=== PATIENT | female | born 1985 | race African-American/Black ===

== ENCOUNTER 2018-11-06 00:20 | Observation (INO) ==
[2018-11-06] MEDS ORDERED: methylPREDNISolone SOD SUC 125 MG/2 ML VIAL IV STA (01:13)
[2018-11-06] MEDS ORDERED: ONDANSETRON 4 MG/2 ML VIAL IV STA (01:13)
[2018-11-06] MEDS ORDERED: ALBUTEROL NEB SOLN 5 MG/ML 20 ML/BOTTLE RESP TX SCH (01:30)
[2018-11-06 01:52] LABS: Basophils % 0.6 % (0.0-0.8); Eosinophils # 0.7 10*3/uL (0.0-0.87); Hematocrit 37.8 VOL% (35.7-47.0); Hemoglobin 12.4 GM/DL (12.0-16.0); Immature Granulocytes % 0.7 %; Immature Granulocytes Absolute 0.05 #; Lymphocytes # 1.6 10*3/uL (1.4-4.0); Lymphocytes % 23.2 % (21.3-54.2); Mean Corpuscular HGB Conc 32.8 GM/DL (32-36); Mean Corpuscular Volume 85.9 FL (87-102); Mean Platelet Volume 10.2 FL (9.6-12.0); Monocytes % 6.9 % (1.7-12.7); Neutrophils % 58.6 % (38.7-73.9); Platelet Count 221 T/CUMM (130-400); Red Cell Distribution Width 13.2 % (9.3-17.3); White Blood Count 6.7 T/CUMM (4-12)
[2018-11-06 02:07] LABS: INR 0.9; PT Patient Result 9.9 SECS
[2018-11-06 02:13] LABS: Alanine Aminotransferase 37 U/L (13-56); Albumin 3.8 G/DL (3.4-5.0); Alkaline Phosphatase 59 U/L (45-117); Aspartate Amino Transferase 30 U/L (0-37); Blood Urea Nitrogen 8 MG/DL (7-18); CKMB % 2.9 %; Calcium 9.1 MG/DL (8.5-10.1); Glucose 95 MG/DL (74-106); Osmolality,Calculated 276.4 MOS/KG (273-304); Total Protein 8.1 G/DL (6.4-8.3); Troponin I < 0.015 NG/ML (0.00-0.045)
[2018-11-06] MEDS ORDERED: ACETAMINOPHEN 325 MG TABLET PO PRN (03:12)
[2018-11-06] MEDS ORDERED: ONDANSETRON 4 MG/2 ML VIAL IV PRN (03:12)
[2018-11-06] MEDS ORDERED: guaiFENesin/DM ER 600-30 MG TABLET PO PRN (03:12)
[2018-11-06 04:32] LABS: Apearance,Urine CLEAR (Clear); Bacteria,Urine Occasional /HPF (Few); Bilirubin,Urine Negative (Negative); Blood, Urine Negative (Negative); Glucose,Urine (UA) Negative (Negative); Ketones,Urine Negative (Negative); Mucus,Urine Occasional /LPF (Occasional); Nitrite,Urine Negative (Negative); Protein,Urine Negative; RBC,Urine 2 /HPF (0-4); Squamous Epithelial Cell,Urine Occasional /HPF (0-10); Urine Color Yellow (Yellow); Urine Specific Gravity 1.016 (1.001-1.035); Urine Urobilinogen < 2.0 EU/DL (0.2-1.0); WBC,Urine 1 /HPF (0-6)
[2018-11-06 04:55] LABS: Barbiturates Screen,Urine Negative (Negative); Benzodiazepines Screen,Urine Negative (Negative); Cannabinoid Screen,Urine Negative (Negative); Opiate Screen,Urine Positive (Negative); Phencyclidine Screen,Urine Negative (Negative)
[2018-11-06] MEDS: SODIUM CHLORIDE 0.9% 1,000 ML IV SCH ×2 (06:54→20:17)
[2018-11-06 07:16] LABS: Basophils % 0.4 % (0.0-0.8); Eosinophils # 0.3 10*3/uL (0.0-0.87); Eosinophils % 4.1 % (0.00-10.9); Hemoglobin 12.2 GM/DL (12.0-16.0); Immature Granulocytes Absolute 0.07 #; Lymphocytes # 0.6 10*3/uL (1.4-4.0); Lymphocytes % 9.1 % (21.3-54.2); Mean Corpuscular HGB Conc 33.9 GM/DL (32-36); Mean Corpuscular Volume 84.3 FL (87-102); Mean Platelet Volume 10.8 FL (9.6-12.0); Monocytes % 2.5 % (1.7-12.7); Neutrophils % 82.9 % (38.7-73.9); Platelet Count 222 T/CUMM (130-400); Red Blood Count 4.27 MC/CUMM (3.8-5.5); Red Cell Distribution Width 13.3 % (9.3-17.3); White Blood Count 6.9 T/CUMM (4-12)
[2018-11-06 07:40] LABS: Calcium 9.3 MG/DL (8.5-10.1); Osmolality,Calculated 275.5 MOS/KG (273-304)
[2018-11-06] MEDS: ALBUTEROL/IPRATROPIUM 3 ML NEB RESP TX SCH ×5 (07:57→23:32)
[2018-11-06] MEDS: AZITHROMYCIN 250 MG TABLET PO SCH (08:52)
[2018-11-06] MEDS: ENOXAPARIN 40 MG/0.4 ML SYRINGE SUBCUT SCH (08:52)
[2018-11-06] MEDS: methylPREDNISolone SOD SUC 40 MG/1 ML VIAL IV SCH ×2 (09:15→17:16)
[2018-11-07] MEDS: methylPREDNISolone SOD SUC 40 MG/1 ML VIAL IV SCH ×2 (01:59→09:08)
[2018-11-07] MEDS: ALBUTEROL/IPRATROPIUM 3 ML NEB RESP TX SCH ×2 (03:27→07:48)
[2018-11-07] MEDS: ENOXAPARIN 40 MG/0.4 ML SYRINGE SUBCUT SCH (09:08)
[2018-11-07] MEDS: AZITHROMYCIN 250 MG TABLET PO SCH (09:08)
[2018-11-07 10:40] VITALS: BP 121/65
== END 2018-11-07 10:24 | disposition home or self-care (01) ==
LOC: EDBD → EDUNIT# → N.ED 00:20 → INTOOBSV 03:12 → SUATTDRO 03:12 → N.EDINP 03:12 → N.5E 05:32
PROVIDERS: ADMIT Internal Medicine; ATTEND Family Medicine

== ENCOUNTER 2019-06-14 15:38 | Observation (INO) ==
[2019-06-14] MEDS ORDERED: ALBUTEROL 2.5 MG/3 ML NEB RESP TX STA (16:16)
[2019-06-14] MEDS ORDERED: methylPREDNISolone SOD SUC 40 MG/1 ML VIAL IV STA (16:16)
[2019-06-14 16:54] LABS: Basophils # 0.1 10*3/uL (0.0-0.2); Eosinophils # 0.6 10*3/uL (0.0-0.87); Eosinophils % 9.9 % (0.00-10.9); Hemoglobin 13.2 GM/DL (12.0-16.0); Immature Granulocytes Absolute 0.06 #; Lymphocytes # 1.8 10*3/uL (1.4-4.0); Lymphocytes % 30.4 % (21.3-54.2); Mean Corpuscular Volume 87.5 FL (87-102); Mean Platelet Volume 10.4 FL (9.6-12.0); Monocytes % 8.4 % (1.7-12.7); Neutrophils % 49.3 % (38.7-73.9); Platelet Count 224 T/CUMM (130-400); Red Blood Count 4.57 MC/CUMM (3.8-5.5); Red Cell Distribution Width 12.7 % (9.3-17.3)
[2019-06-14] MEDS ORDERED: LEVOFLOXACIN INJ 500 MG in PREMIX 1 EACH IV STA (17:12)
[2019-06-14] MEDS ORDERED: LEVOFLOXACIN INJ 100 ML IV ONE (17:15)
[2019-06-14 17:21] LABS: Calcium 9.2 MG/DL (8.5-10.1)
[2019-06-14] MEDS ORDERED: ONDANSETRON 4 MG/2 ML VIAL IV PRN (18:19)
[2019-06-14] MEDS ORDERED: guaiFENesin/DM ER 600-30 MG TABLET PO PRN (18:19)
[2019-06-14] MEDS ORDERED: ACETAMINOPHEN 325 MG TABLET PO PRN (18:19)
[2019-06-14] MEDS ORDERED: cefTRIAXone 1,000 MG in SYRINGE 1 EACH IV SCH (18:30)
[2019-06-14] MEDS: ALBUTEROL/IPRATROPIUM 3 ML NEB RESP TX SCH (20:42)
[2019-06-14] MEDS ORDERED: AZITHROMYCIN INJ 500 MG in SODIUM CHLORIDE 0.9% 250 ML IV SCH (21:00)
[2019-06-15] MEDS: ALBUTEROL/IPRATROPIUM 3 ML NEB RESP TX SCH ×2 (00:12→07:15)
[2019-06-15] MEDS ORDERED: methylPREDNISolone SOD SUC 125 MG/2 ML VIAL IV SCH (05:00)
[2019-06-15 05:57] LABS: Basophils % 0.2 % (0.0-0.8); Eosinophils % 0.2 % (0.00-10.9); Hematocrit 37.6 VOL% (35.7-47.0); Hemoglobin 12.3 GM/DL (12.0-16.0); Immature Granulocytes % 0.7 %; Immature Granulocytes Absolute 0.07 #; Lymphocytes # 0.8 10*3/uL (1.4-4.0); Lymphocytes % 7.8 % (21.3-54.2); Mean Corpuscular HGB Conc 32.7 GM/DL (32-36); Mean Corpuscular Volume 87.6 FL (87-102); Mean Platelet Volume 10.5 FL (9.6-12.0); Monocytes % 3.5 % (1.7-12.7); Neutrophils % 87.6 % (38.7-73.9); Platelet Count 235 T/CUMM (130-400); Red Blood Count 4.29 MC/CUMM (3.8-5.5); Red Cell Distribution Width 12.9 % (9.3-17.3); White Blood Count 9.6 T/CUMM (4-12)
[2019-06-15 06:15] LABS: Calcium 8.9 MG/DL (8.5-10.1); Osmolality,Calculated 274.5 MOS/KG (273-304)
[2019-06-15 07:48] VITALS: BP 98/43
[2019-06-15] MEDS ORDERED: MONTELUKAST 10 MG TABLET PO SCH (09:00)
[2019-06-15] MEDS ORDERED: FLUTICASONE/SALMETEROL 500-50 DISKUS 14 DOSE INH SCH (09:00)
[2019-06-15] MEDS: PANTOPRAZOLE 40 MG TABLET PO SCH ×2 (09:15→09:20)
[2019-06-16] MEDS ORDERED: AZITHROMYCIN 250 MG TABLET PO SCH (09:00)
== END 2019-06-15 10:56 | disposition home or self-care (01) ==
LOC: N.ED 15:38 → N.EDINP 15:38 → N.2E 21:04
PROVIDERS: ADMIT Internal Medicine; ATTEND Internal Medicine

== ENCOUNTER 2019-06-29 19:36 | Observation (INO) ==
[2019-06-29] MEDS ORDERED: methylPREDNISolone SOD SUC 125 MG/2 ML VIAL IV STA (19:55)
[2019-06-29] MEDS ORDERED: ALBUTEROL/IPRATROPIUM 3 ML NEB RESP TX STA (19:55)
[2019-06-29 20:16] LABS: Basophils # 0.1 10*3/uL (0.0-0.2); Basophils % 0.8 % (0.0-0.8); Eosinophils # 1.3 10*3/uL (0.0-0.87); Hematocrit 44.5 VOL% (35.7-47.0); Hemoglobin 14.6 GM/DL (12.0-16.0); Immature Granulocytes % 1.1 %; Immature Granulocytes Absolute 0.09 #; Lymphocytes # 1.8 10*3/uL (1.4-4.0); Lymphocytes % 22.1 % (21.3-54.2); Mean Corpuscular HGB Conc 32.8 GM/DL (32-36); Mean Corpuscular Volume 87.6 FL (87-102); Mean Platelet Volume 10.3 FL (9.6-12.0); Monocytes % 3.8 % (1.7-12.7); Neutrophils % 56.2 % (38.7-73.9); Platelet Count 268 T/CUMM (130-400); Red Blood Count 5.08 MC/CUMM (3.8-5.5); Red Cell Distribution Width 12.7 % (9.3-17.3)
[2019-06-29 20:39] LABS: Eosinophils 20 % (0-10); Lymphocytes 23 % (20-55); Platelet Estimate Adequate; Segmented Neutrophils 52 % (50-85); Total Cells Counted 100
[2019-06-29 20:42] LABS: Albumin 4.3 G/DL (3.4-5.0); Bilirubin,Total 0.6 MG/DL (0.2-1.0); Calcium 9.8 MG/DL (8.5-10.1); Osmolality,Calculated 271.7 MOS/KG (273-304); Total Protein 8.8 G/DL (6.4-8.3)
[2019-06-29] MEDS: ALBUTEROL 2.5 MG/3 ML NEB RESP TX SCH ×2 (21:33)
[2019-06-29] MEDS ORDERED: ALUMINUM/MAGNES/SIMETH MAX STR 30 ML UDCUP PO PRN (22:31)
[2019-06-29] MEDS ORDERED: ONDANSETRON 4 MG/2 ML VIAL IV PRN (22:31)
[2019-06-29] MEDS ORDERED: GLUCAGON 1 MG VIAL IM PRN (22:31)
[2019-06-29] MEDS ORDERED: DOCUSATE SODIUM 100 MG CAPSULE PO PRN (22:31)
[2019-06-29] MEDS ORDERED: DEXTROSE 50% 25 GM/50 ML VIAL IV PRN (22:31)
[2019-06-29] MEDS ORDERED: ACETAMINOPHEN 325 MG TABLET PO PRN (22:31)
[2019-06-29] MEDS ORDERED: ZALEPLON 5 MG CAPSULE PO PRN (22:31)
[2019-06-29] MEDS ORDERED: ALBUTEROL 2.5 MG/3 ML NEB RESP TX SCH (23:00)
[2019-06-29] MEDS ORDERED: ALBUTEROL 2.5 MG/3 ML NEB RESP TX PRN (23:12)
[2019-06-30] MEDS: MONTELUKAST 10 MG TABLET PO SCH ×2 (01:22→20:39)
[2019-06-30] MEDS: methylPREDNISolone SOD SUC 125 MG/2 ML VIAL IV SCH ×4 (03:25→20:39)
[2019-06-30 06:54] LABS: Basophils % 0.2 % (0.0-0.8); Eosinophils % 0.4 % (0.00-10.9); Hemoglobin 14.1 GM/DL (12.0-16.0); Immature Granulocytes % 0.8 %; Immature Granulocytes Absolute 0.08 #; Lymphocytes # 0.7 10*3/uL (1.4-4.0); Lymphocytes % 7.7 % (21.3-54.2); Mean Corpuscular HGB Conc 32.8 GM/DL (32-36); Mean Corpuscular Volume 87.4 FL (87-102); Monocytes % 0.8 % (1.7-12.7); Neutrophils % 90.1 % (38.7-73.9); Platelet Count 289 T/CUMM (130-400); Red Blood Count 4.92 MC/CUMM (3.8-5.5); Red Cell Distribution Width 12.7 % (9.3-17.3); White Blood Count 9.6 T/CUMM (4-12)
[2019-06-30 07:25] LABS: Calcium 9.5 MG/DL (8.5-10.1); Osmolality,Calculated 274.8 MOS/KG (273-304)
[2019-06-30] MEDS: ALBUTEROL/IPRATROPIUM 3 ML NEB RESP TX SCH ×3 (07:29→20:02)
[2019-06-30] MEDS: ENOXAPARIN 40 MG/0.4 ML SYRINGE SUBCUT SCH (09:28)
[2019-06-30] MEDS: PANTOPRAZOLE 40 MG TABLET PO SCH (09:29)
[2019-06-30] MEDS: FLUTICASONE/SALMETEROL 500-50 DISKUS 14 DOSE INH SCH ×2 (14:27→20:40)
[2019-07-01] MEDS: methylPREDNISolone SOD SUC 125 MG/2 ML VIAL IV SCH ×2 (04:56→09:15)
[2019-07-01] MEDS: ALBUTEROL/IPRATROPIUM 3 ML NEB RESP TX SCH (07:25)
[2019-07-01] MEDS: FLUTICASONE/SALMETEROL 500-50 DISKUS 14 DOSE INH SCH (09:14)
[2019-07-01] MEDS: ENOXAPARIN 40 MG/0.4 ML SYRINGE SUBCUT SCH (09:15)
[2019-07-01] MEDS: PANTOPRAZOLE 40 MG TABLET PO SCH (09:15)
[2019-07-01 12:27] VITALS: BP 117/68
== END 2019-07-01 12:43 | disposition home or self-care (01) ==
LOC: N.EDINP 19:36 → N.ED 19:36 → SUATTDRO 22:31 → N.5E 23:05
PROVIDERS: ADMIT Internal Medicine; ATTEND Internal Medicine

== ENCOUNTER 2021-01-11 05:37 | Inpatient (IN) ==
[~2021-01-11 05:37] MED LIST: ACETAMINOPHEN 500 MG TABLET PO ONE; DIAZEPAM 5 MG TABLET PO ONE; FAMOTIDINE 20 MG TABLET PO ONE; GABAPENTIN 400 MG CAPSULE PO ONE; LACTATED RINGERS 1,000 ML IV SCH
[2021-01-11] MEDS ORDERED: CLINDAMYCIN INJ 900 MG/50 ML PREMIX IV ONE (06:00)
[2021-01-11] MEDS ORDERED: DIAZEPAM 5 MG TABLET ONE (06:33)
[2021-01-11] MEDS ORDERED: GABAPENTIN 400 MG CAPSULE ONE (06:34)
[2021-01-11] MEDS ORDERED: ACETAMINOPHEN 500 MG TABLET ONE (06:34)
[2021-01-11] MEDS ORDERED: FAMOTIDINE 20 MG TABLET ONE (06:34)
[2021-01-11] MEDS ORDERED: ONDANSETRON 4 MG/2 ML VIAL ONE (06:59)
[2021-01-11] MEDS ORDERED: LIDOCAINE 2% 5 ML VIAL ONE (06:59)
[2021-01-11] MEDS ORDERED: MIDAZOLAM 2 MG/2 ML VIAL ONE (06:59)
[2021-01-11] MEDS ORDERED: propofoL 200 MG/20 ML VIAL IV ONE (06:59)
[2021-01-11] MEDS ORDERED: fentaNYL 100 MCG/2 ML VIAL ONE ×3 (06:59→09:23)
[2021-01-11] MEDS ORDERED: ROCURONIUM 50 MG/5 ML VIAL IV ONE (06:59)
[2021-01-11] MEDS ORDERED: DEXAMETHASONE 4 MG/1 ML VIAL ONE (06:59)
[2021-01-11] MEDS: LACTATED RINGERS 1,000 ML IV SCH (07:00)
[2021-01-11] MEDS ORDERED: METOPROLOL TARTRATE 5 MG/5 ML VIAL IV ONE (08:44)
[2021-01-11] MEDS ORDERED: GLYCOPYRROLATE 0.4 MG/2 ML VIAL ONE (10:17)
[2021-01-11] MEDS ORDERED: SEVOFLURANE 1 UNIT/15 MINUTE INH ONE (10:17)
[2021-01-11] MEDS ORDERED: TISSUE ADHESIVE 1 EACH APPLICATOR TOP ONE (10:19)
[2021-01-11] MEDS ORDERED: LACTATED RINGERS 1,000 ML IV ONE (10:29)
[2021-01-11] MEDS ORDERED: ONDANSETRON 4 MG/2 ML VIAL IV PRN ×2 (10:32→11:02)
[2021-01-11] MEDS ORDERED: PHENYLEPHRINE DRIP 20 MG/250 ML PREMIX IV ONE (10:54)
[2021-01-11] MEDS: HYDROmorphone 2 MG/1 ML VIAL IV PRN ×5 (11:09→22:05)
[2021-01-11] MEDS: DEXTROSE 5% LACTATED RINGERS 1,000 ML IV SCH ×2 (15:00→18:27)
[2021-01-12] MEDS: HYDROmorphone 2 MG/1 ML VIAL IV PRN ×8 (01:45→23:39)
[2021-01-12] MEDS: DEXTROSE 5% LACTATED RINGERS 1,000 ML IV SCH ×3 (02:18→15:45)
[2021-01-12 05:05] LABS: Basophils % 0.2 % (0.0-0.8); Eosinophils # 0.3 10*3/uL (0.0-0.87); Eosinophils % 4.5 % (0.00-10.9); Hematocrit 35.6 VOL% (35.7-47.0); Hemoglobin 11.6 GM/DL (12.0-16.0); Immature Granulocytes % 0.6 %; Immature Granulocytes Absolute 0.04 #; Lymphocytes # 0.8 10*3/uL (1.4-4.0); Lymphocytes % 11.9 % (21.3-54.2); Mean Corpuscular HGB Conc 32.6 GM/DL (32-36); Mean Corpuscular Volume 86.8 FL (87-102); Mean Platelet Volume 10.6 FL (9.6-12.0); Monocytes % 6.2 % (1.7-12.7); Neutrophils % 76.6 % (38.7-73.9); Platelet Count 219 T/CUMM (130-400); Red Cell Distribution Width 13.4 % (9.3-17.3); White Blood Count 6.5 T/CUMM (4-12)
[2021-01-12 05:29] LABS: Calcium 8.7 MG/DL (8.5-10.1); Osmolality,Calculated 282.1 MOS/KG (273-304); Potassium 3.6 MMOL/L (3.5-5.1)
[2021-01-12] MEDS: PANTOPRAZOLE 40 MG VIAL IV SCH (08:59)
[2021-01-12] MEDS: LACTATED RINGERS 1,000 ML IV SCH (10:29)
[2021-01-13] MEDS: DEXTROSE 5% LACTATED RINGERS 1,000 ML IV SCH ×3 (00:35→17:26)
[2021-01-13] MEDS: HYDROmorphone 2 MG/1 ML VIAL IV PRN ×3 (03:13→11:21)
[2021-01-13] MEDS: LACTATED RINGERS 1,000 ML IV SCH (05:14)
[2021-01-13] MEDS: PANTOPRAZOLE 40 MG VIAL IV SCH (08:31)
[2021-01-13] MEDS ORDERED: CETIRIZINE 10 MG TABLET PO PRN (09:46)
[2021-01-13] MEDS ORDERED: NON-FORMULARY MEDICATION (Tiotropium-Olodaterol [Stiolto Respimat] 2.5-2.5 mcg/actuation M INH PRN (09:46)
[2021-01-13] MEDS ORDERED: diphenhydrAMINE 25 MG/10 ML UDCUP PO PRN (09:46)
[2021-01-13] MEDS ORDERED: BENZONATATE 100 MG CAPSULE PO PRN (09:46)
[2021-01-13] MEDS ORDERED: CYCLOBENZAPRINE 10 MG TABLET PO PRN (09:46)
[2021-01-13] MEDS ORDERED: ALBUTEROL 2.5 MG/3 ML NEB RESP TX PRN (09:46)
[2021-01-13] MEDS: HYDROmorphone 2 MG/1 ML VIAL IM PRN ×2 (15:25→23:13)
[2021-01-13] MEDS: HYDROcod/ACETAMIN 7.5-325 MG/15 ML UDCUP PO PRN (18:18)
[2021-01-13] MEDS: TOPIRAMATE 25 MG TABLET PO SCH (21:24)
[2021-01-13] MEDS: DOCUSATE SODIUM 100 MG CAPSULE PO SCH (21:24)
[2021-01-13] MEDS: MONTELUKAST 10 MG TABLET PO SCH (21:24)
[2021-01-13] MEDS: BECLOMETHASONE 80 MCG/PUFF INHALER 8.7 GM INH SCH (21:24)
[2021-01-14] MEDS: DEXTROSE 5% LACTATED RINGERS 1,000 ML IV SCH ×3 (01:53→16:08)
[2021-01-14] MEDS: HYDROmorphone 2 MG/1 ML VIAL IM PRN ×2 (03:37→20:58)
[2021-01-14 04:55] LABS: Eosinophils # 0.3 10*3/uL (0.0-0.87); Eosinophils % 6.4 % (0.00-10.9); Hematocrit 34.4 VOL% (35.7-47.0); Hemoglobin 11.2 GM/DL (12.0-16.0); Immature Granulocytes % 1.5 %; Immature Granulocytes Absolute 0.06 #; Lymphocytes # 1.1 10*3/uL (1.4-4.0); Lymphocytes % 28.1 % (21.3-54.2); Mean Corpuscular HGB Conc 32.6 GM/DL (32-36); Mean Corpuscular Volume 87.8 FL (87-102); Mean Platelet Volume 10.5 FL (9.6-12.0); Monocytes % 9.4 % (1.7-12.7); Neutrophils % 54.6 % (38.7-73.9); Platelet Count 199 T/CUMM (130-400); Red Blood Count 3.92 MC/CUMM (3.8-5.5); White Blood Count 4.1 T/CUMM (4-12)
[2021-01-14] MEDS: LACTATED RINGERS 1,000 ML IV SCH (05:08)
[2021-01-14 05:14] LABS: Calcium 9.3 MG/DL (8.5-10.1); Osmolality,Calculated 275.4 MOS/KG (273-304); Potassium 3.4 MMOL/L (3.5-5.1)
[2021-01-14] MEDS: PANTOPRAZOLE 40 MG VIAL IV SCH (08:40)
[2021-01-14] MEDS: HYDROcod/ACETAMIN 7.5-325 MG/15 ML UDCUP PO PRN ×2 (08:47→15:29)
[2021-01-14] MEDS: BECLOMETHASONE 80 MCG/PUFF INHALER 8.7 GM INH SCH ×2 (08:48→20:43)
[2021-01-14] MEDS: DOCUSATE SODIUM 100 MG CAPSULE PO SCH (20:43)
[2021-01-14] MEDS: MONTELUKAST 10 MG TABLET PO SCH (20:43)
[2021-01-14] MEDS: TOPIRAMATE 25 MG TABLET PO SCH (20:43)
[2021-01-15] MEDS: DEXTROSE 5% LACTATED RINGERS 1,000 ML IV SCH ×5 (01:08→23:01)
[2021-01-15] MEDS: HYDROcod/ACETAMIN 7.5-325 MG/15 ML UDCUP PO PRN ×4 (02:24→18:40)
[2021-01-15] MEDS: LACTATED RINGERS 1,000 ML IV SCH (05:48)
[2021-01-15] MEDS: PANTOPRAZOLE 40 MG VIAL IV SCH (09:10)
[2021-01-15] MEDS: BECLOMETHASONE 80 MCG/PUFF INHALER 8.7 GM INH SCH ×2 (09:10→21:06)
[2021-01-15 11:28] LABS: Basophils % 0.7 % (0.0-0.8); Eosinophils # 0.4 10*3/uL (0.0-0.87); Hematocrit 35.5 VOL% (35.7-47.0); Hemoglobin 11.8 GM/DL (12.0-16.0); Immature Granulocytes % 1.4 %; Immature Granulocytes Absolute 0.06 #; Lymphocytes % 23.2 % (21.3-54.2); Mean Corpuscular HGB Conc 33.2 GM/DL (32-36); Mean Corpuscular Volume 86.4 FL (87-102); Mean Platelet Volume 10.1 FL (9.6-12.0); Monocytes % 8.9 % (1.7-12.7); NRBC # 0.02 10*3/uL; Neutrophils % 57.8 % (38.7-73.9); Platelet Count 210 T/CUMM (130-400); Red Blood Count 4.11 MC/CUMM (3.8-5.5); Red Cell Distribution Width 12.9 % (9.3-17.3); White Blood Count 4.4 T/CUMM (4-12)
[2021-01-15 11:44] LABS: Calcium 8.9 MG/DL (8.5-10.1); Osmolality,Calculated 272.5 MOS/KG (273-304); Potassium 3.8 MMOL/L (3.5-5.1)
[2021-01-15] MEDS: TOPIRAMATE 25 MG TABLET PO SCH (21:06)
[2021-01-15] MEDS: MONTELUKAST 10 MG TABLET PO SCH (21:06)
[2021-01-15] MEDS: DOCUSATE SODIUM 100 MG CAPSULE PO SCH (21:06)
[2021-01-16] MEDS: HYDROcod/ACETAMIN 7.5-325 MG/15 ML UDCUP PO PRN (03:07)
[2021-01-16] MEDS: PANTOPRAZOLE 40 MG VIAL IV SCH (08:51)
[2021-01-16] MEDS: DEXTROSE 5% LACTATED RINGERS 1,000 ML IV SCH ×2 (10:50→15:30)
[2021-01-16] MEDS: BECLOMETHASONE 80 MCG/PUFF INHALER 8.7 GM INH SCH ×2 (10:50→20:20)
[2021-01-16] MEDS: KETOROLAC 30 MG/1 ML VIAL IV SCH ×2 (10:50→14:43)
[2021-01-16] MEDS: DOCUSATE SODIUM 100 MG CAPSULE PO SCH (20:18)
[2021-01-16] MEDS: MONTELUKAST 10 MG TABLET PO SCH (20:19)
[2021-01-16] MEDS: TOPIRAMATE 25 MG TABLET PO SCH (20:19)
[2021-01-17] MEDS: KETOROLAC 30 MG/1 ML VIAL IV SCH ×2 (00:23→04:39)
[2021-01-17] MEDS: DEXTROSE 5% LACTATED RINGERS 1,000 ML IV SCH ×3 (00:24→19:23)
[2021-01-17] MEDS ORDERED: KETOROLAC 30 MG/1 ML VIAL ONE (04:38)
[2021-01-17] MEDS ORDERED: BISACODYL 10 MG SUPP RECTAL ONE (09:00)
[2021-01-17] MEDS: BECLOMETHASONE 80 MCG/PUFF INHALER 8.7 GM INH SCH ×2 (09:20→20:52)
[2021-01-17] MEDS: PANTOPRAZOLE 40 MG VIAL IV SCH (09:20)
[2021-01-17] MEDS: KETOROLAC 15 MG/1 ML VIAL IV SCH ×2 (14:17→20:51)
[2021-01-17] MEDS: MONTELUKAST 10 MG TABLET PO SCH (20:51)
[2021-01-17] MEDS: DOCUSATE SODIUM 100 MG CAPSULE PO SCH (20:51)
[2021-01-17] MEDS: TOPIRAMATE 25 MG TABLET PO SCH (20:51)
[2021-01-18] MEDS: DEXTROSE 5% LACTATED RINGERS 1,000 ML IV SCH ×2 (02:23→09:36)
[2021-01-18] MEDS: KETOROLAC 15 MG/1 ML VIAL IV SCH (02:24)
[2021-01-18 05:20] LABS: Osmolality,Calculated 275.4 MOS/KG (273-304); Potassium 3.6 MMOL/L (3.5-5.1)
[2021-01-18 07:18] VITALS: BP 110/60
[2021-01-18] MEDS: PANTOPRAZOLE 40 MG VIAL IV SCH (09:21)
[2021-01-18] MEDS: BECLOMETHASONE 80 MCG/PUFF INHALER 8.7 GM INH SCH (09:21)
== END 2021-01-18 10:20 | disposition home or self-care (01) | DRG 328 ==
LOC: N.OR 05:37 → N.SDSINP 05:39 → N.3E 14:41
PROVIDERS: ADMIT Student in an Organized Health Care Education/Training Program; ATTEND Student in an Organized Health Care Education/Training Program

== ENCOUNTER 2021-01-25 17:10 | Inpatient (IN) ==
[2021-01-25] MEDS ORDERED: LACTATED RINGERS 1,000 ML IV ONE (20:29)
[2021-01-25] MEDS ORDERED: PANTOPRAZOLE 40 MG VIAL IV STA (20:29)
[2021-01-25] MEDS ORDERED: ONDANSETRON 4 MG/2 ML VIAL IV STA (20:29)
[2021-01-25] MEDS ORDERED: METOCLOPRAMIDE 10 MG/2 ML VIAL IV STA (20:29)
[2021-01-25 21:37] LABS: Basophils # 0.1 10*3/uL (0.0-0.2); Basophils % 0.8 % (0.0-0.8); Eosinophils # 0.8 10*3/uL (0.0-0.87); Eosinophils % 12.3 % (0.00-10.9); Hematocrit 34.8 VOL% (35.7-47.0); Hemoglobin 11.6 GM/DL (12.0-16.0); Immature Granulocytes % 0.7 %; Immature Granulocytes Absolute 0.04 #; Lymphocytes # 1.7 10*3/uL (1.4-4.0); Lymphocytes % 27.5 % (21.3-54.2); Mean Corpuscular HGB Conc 33.3 GM/DL (32-36); Mean Corpuscular Volume 83.9 FL (87-102); Mean Platelet Volume 9.6 FL (9.6-12.0); Monocytes % 5.9 % (1.7-12.7); Neutrophils % 52.8 % (38.7-73.9); Platelet Count 303 T/CUMM (130-400); Red Blood Count 4.15 MC/CUMM (3.8-5.5); White Blood Count 6.1 T/CUMM (4-12)
[2021-01-25 22:00] LABS: Eosinophils 13 % (0-10); Hypochromasia 1+; Lymphocytes 25 % (20-55); Platelet Estimate Adequate; Segmented Neutrophils 57 % (50-85); Total Cells Counted 100
[2021-01-25 22:03] LABS: Albumin 3.7 G/DL (3.4-5.0); Bilirubin,Total 0.5 MG/DL (0.20-1.00); Calcium 9.2 MG/DL (8.5-10.1); Osmolality,Calculated 276.4 MOS/KG (273-304); Potassium 3.7 MMOL/L (3.5-5.1)
[2021-01-25] MEDS ORDERED: PROMETHAZINE 25 MG/1 ML VIAL IM STA (22:27)
[2021-01-26] MEDS ORDERED: PROMETHAZINE 25 MG/1 ML VIAL IM PRN (04:18)
[2021-01-26] MEDS ORDERED: ONDANSETRON 4 MG/2 ML VIAL IV PRN ×2 (04:18→11:38)
[2021-01-26] MEDS ORDERED: ACETAMINOPHEN 325 MG TABLET PO PRN (04:18)
[2021-01-26] MEDS: SODIUM CHLORIDE 0.9% 1,000 ML IV SCH ×3 (04:55→18:23)
[2021-01-26] MEDS ORDERED: LEVOFLOXACIN INJ 750 MG/150 ML PREMIX IV SCH (05:00)
[2021-01-26] MEDS: PANTOPRAZOLE 40 MG VIAL IV SCH (08:08)
[2021-01-26] MEDS: HYDROmorphone 2 MG/1 ML VIAL IV PRN ×2 (11:14→21:35)
[2021-01-26 19:18] LABS: Bilirubin,Urine Negative (Negative); Blood, Urine Negative (Negative); Glucose,Urine (UA) Negative (Negative); Ketones,Urine 5 mg/dL (Negative); Mucus,Urine Occasional /LPF (Occasional); Nitrite,Urine Negative (Negative); Protein,Urine Negative; RBC,Urine 1 /HPF (0-4); Squamous Epithelial Cell,Urine Occasional /HPF (0-10); Urine Appearance CLEAR (Clear); Urine Color Yellow (Yellow); Urine Specific Gravity 1.012 (1.001-1.035); Urine Urobilinogen < 2.0 EU/DL (0.2-1.0)
[2021-01-27] MEDS: SODIUM CHLORIDE 0.9% 1,000 ML IV SCH ×3 (02:37→20:21)
[2021-01-27 06:12] LABS: Basophils # 0.1 10*3/uL (0.0-0.2); Basophils % 1.1 % (0.0-0.8); Eosinophils # 0.6 10*3/uL (0.0-0.87); Eosinophils % 13.1 % (0.00-10.9); Hematocrit 35.4 VOL% (35.7-47.0); Hemoglobin 11.4 GM/DL (12.0-16.0); Immature Granulocytes % 0.9 %; Immature Granulocytes Absolute 0.04 #; Lymphocytes # 1.7 10*3/uL (1.4-4.0); Lymphocytes % 37.6 % (21.3-54.2); Mean Corpuscular HGB Conc 32.2 GM/DL (32-36); Mean Corpuscular Volume 86.3 FL (87-102); Mean Platelet Volume 10.1 FL (9.6-12.0); Monocytes % 8.1 % (1.7-12.7); Neutrophils % 39.2 % (38.7-73.9); Platelet Count 284 T/CUMM (130-400); Red Cell Distribution Width 12.8 % (9.3-17.3); White Blood Count 4.4 T/CUMM (4-12)
[2021-01-27 06:42] LABS: Eosinophils 11 % (0-10); Lymphocytes 35 % (20-55); Platelet Estimate Normal; Segmented Neutrophils 48 % (50-85); Total Cells Counted 100
[2021-01-27 06:44] LABS: Albumin 2.9 G/DL (3.4-5.0); Calcium 8.8 MG/DL (8.5-10.1); Osmolality,Calculated 276.3 MOS/KG (273-304); Potassium 3.8 MMOL/L (3.5-5.1); Total Protein 7.2 G/DL (6.4-8.2)
[2021-01-27] MEDS: HYDROmorphone 2 MG/1 ML VIAL IV PRN ×3 (08:52→19:07)
[2021-01-27] MEDS: PANTOPRAZOLE 40 MG VIAL IV SCH ×3 (08:52→23:34)
[2021-01-27] MEDS: KETOROLAC 30 MG/1 ML VIAL IV SCH ×3 (11:43→23:34)
[2021-01-28] MEDS: HYDROmorphone 2 MG/1 ML VIAL IV PRN ×3 (02:04→16:42)
[2021-01-28] MEDS: SODIUM CHLORIDE 0.9% 1,000 ML IV SCH ×5 (04:05→22:09)
[2021-01-28 05:15] LABS: Basophils % 0.7 % (0.0-0.8); Eosinophils # 0.6 10*3/uL (0.0-0.87); Eosinophils % 13.7 % (0.00-10.9); Hematocrit 34.9 VOL% (35.7-47.0); Hemoglobin 11.4 GM/DL (12.0-16.0); Immature Granulocytes % 1.2 %; Immature Granulocytes Absolute 0.05 #; Lymphocytes # 1.4 10*3/uL (1.4-4.0); Mean Corpuscular HGB Conc 32.7 GM/DL (32-36); Mean Platelet Volume 10.1 FL (9.6-12.0); Monocytes % 7.5 % (1.7-12.7); Neutrophils % 42.9 % (38.7-73.9); Platelet Count 255 T/CUMM (130-400); Red Blood Count 4.06 MC/CUMM (3.8-5.5); Red Cell Distribution Width 12.4 % (9.3-17.3); White Blood Count 4.2 T/CUMM (4-12)
[2021-01-28] MEDS: KETOROLAC 30 MG/1 ML VIAL IV SCH (05:20)
[2021-01-28 05:39] LABS: Calcium 8.6 MG/DL (8.5-10.1); Osmolality,Calculated 272.5 MOS/KG (273-304); Potassium 3.7 MMOL/L (3.5-5.1)
[2021-01-28 05:51] LABS: Atypical Lymphocytes Few; Eosinophils 6 % (0-10); Hypochromasia 1+; Lymphocytes 38 % (20-55); Microcytosis 1+; Segmented Neutrophils 48 % (50-85); Total Cells Counted 100
[2021-01-28 05:52] LABS: Platelet Estimate Normal
[2021-01-28] MEDS: PANTOPRAZOLE 40 MG VIAL IV SCH ×2 (09:00→22:09)
[2021-01-28] MEDS: HYDROcod/ACETAMIN 7.5-325 MG/15 ML UDCUP PO PRN ×2 (11:47→22:11)
[2021-01-29] MEDS ORDERED: KETOROLAC 15 MG/1 ML VIAL IM SCH ×2 (09:30→10:00)
[2021-01-29] MEDS: PANTOPRAZOLE 40 MG VIAL IV SCH ×2 (09:47→20:28)
[2021-01-29] MEDS: KETOROLAC 15 MG/1 ML VIAL IV SCH ×3 (10:01→22:38)
[2021-01-29] MEDS: SODIUM CHLORIDE 0.9% 1,000 ML IV SCH ×3 (14:31→23:28)
[2021-01-29] MEDS: HYDROcod/ACETAMIN 7.5-325 MG/15 ML UDCUP PO PRN ×2 (18:11→22:41)
[2021-01-29] MEDS: HYDROmorphone 2 MG/1 ML VIAL IV PRN (22:49)
[2021-01-30] MEDS: HYDROcod/ACETAMIN 7.5-325 MG/15 ML UDCUP PO PRN (04:26)
[2021-01-30] MEDS: KETOROLAC 15 MG/1 ML VIAL IV SCH ×2 (04:26→10:22)
[2021-01-30 06:11] LABS: Basophils % 0.8 % (0.0-0.8); Eosinophils # 0.5 10*3/uL (0.0-0.87); Eosinophils % 11.4 % (0.00-10.9); Hematocrit 34.1 VOL% (35.7-47.0); Hemoglobin 11.2 GM/DL (12.0-16.0); Immature Granulocytes Absolute 0.04 #; Lymphocytes # 1.5 10*3/uL (1.4-4.0); Lymphocytes % 37.7 % (21.3-54.2); Mean Corpuscular HGB Conc 32.8 GM/DL (32-36); Mean Corpuscular Volume 85.5 FL (87-102); Mean Platelet Volume 10.3 FL (9.6-12.0); Monocytes % 8.4 % (1.7-12.7); Neutrophils % 40.7 % (38.7-73.9); Platelet Count 267 T/CUMM (130-400); Red Blood Count 3.99 MC/CUMM (3.8-5.5); Red Cell Distribution Width 12.5 % (9.3-17.3)
[2021-01-30 06:40] LABS: Atypical Lymphocytes Few; Calcium 8.9 MG/DL (8.5-10.1); Eosinophils 13 % (0-10); Hypochromasia 1+; Lymphocytes 39 % (20-55); Osmolality,Calculated 278.1 MOS/KG (273-304); Potassium 3.5 MMOL/L (3.5-5.1); Segmented Neutrophils 44 % (50-85); Total Cells Counted 100
[2021-01-30 06:41] LABS: Microcytosis 1+; Ovalocytes Slight; Platelet Estimate Normal
[2021-01-30] MEDS: PANTOPRAZOLE 40 MG VIAL IV SCH (08:03)
[2021-01-30] MEDS: HYDROmorphone 2 MG/1 ML VIAL IV PRN (08:05)
[2021-01-30] MEDS: SODIUM CHLORIDE 0.9% 1,000 ML IV SCH (08:09)
[2021-01-30 11:12] VITALS: BP 118/69
== END 2021-01-30 12:40 | disposition home or self-care (01) | DRG 392 ==
LOC: N.EDINP 17:10 → N.ED 17:10 → N.3E 01-26 04:01
PROVIDERS: ADMIT Student in an Organized Health Care Education/Training Program; ATTEND Student in an Organized Health Care Education/Training Program

== ENCOUNTER 2022-02-09 07:39 | Inpatient (IN) ==
[2022-02-09] MEDS ORDERED: methylPREDNISolone SOD SUC 125 MG/2 ML VIAL IV STA (08:08)
[2022-02-09 08:18] LABS: Basophils # 0.1 10*3/uL (0.0-0.2); Basophils % 0.8 % (0.0-0.8); Eosinophils # 0.8 10*3/uL (0.0-0.87); Eosinophils % 10.6 % (0.00-10.9); Hemoglobin 14.3 GM/DL (12.0-16.0); Immature Granulocytes Absolute 0.07 #; Lymphocytes # 2.2 10*3/uL (1.4-4.0); Lymphocytes % 29.8 % (21.3-54.2); Mean Corpuscular Volume 89.4 FL (87-102); Monocytes # 0.4 10*3/uL (0.11-0.8); Monocytes % 5.8 % (1.7-12.7); Platelet Count 289 T/CUMM (130-400); Red Cell Distribution Width 13.3 % (9.3-17.3); White Blood Count 7.3 T/CUMM (4-12)
[2022-02-09] MEDS ORDERED: ALBUTEROL NEB SOLN 5 MG/ML 20 ML/BOTTLE CONT NEB SCH (08:30)
[2022-02-09 08:38] LABS: Albumin 4.2 G/DL (3.4-5.0); Bilirubin,Total 0.5 MG/DL (0.20-1.00); Calcium 9.8 MG/DL (8.5-10.1); Osmolality,Calculated 279.1 MOS/KG (273-304); Potassium 3.8 MMOL/L (3.5-5.1); Total Protein 8.5 G/DL (6.4-8.2)
[2022-02-09] MEDS ORDERED: ALBUTEROL/IPRATROPIUM 3 ML NEB RESP TX STA (09:55)
[2022-02-09] MEDS ORDERED: hydrALAZINE 20 MG/1 ML VIAL IV PRN (11:05)
[2022-02-09] MEDS ORDERED: ACETAMINOPHEN 325 MG TABLET PO PRN (11:05)
[2022-02-09] MEDS ORDERED: CYCLOBENZAPRINE 10 MG TABLET PO PRN (11:08)
[2022-02-09] MEDS: ALBUTEROL/IPRATROPIUM 3 ML NEB RESP TX SCH ×2 (14:03→20:57)
[2022-02-09] MEDS ORDERED: INFLUENZA VIRUS VACCINE 0.5 ML SYRINGE IM ONE (16:53)
[2022-02-09] MEDS: methylPREDNISolone SOD SUC 40 MG/1 ML VIAL IV SCH ×2 (16:59→23:00)
[2022-02-09] MEDS: MONTELUKAST 10 MG TABLET PO SCH (20:20)
[2022-02-09] MEDS: TOPIRAMATE 25 MG TABLET PO SCH (20:20)
[2022-02-09] MEDS: BUDESONIDE/FORMOTEROL 80-4.5 INHALER 6.9 GM INH SCH (20:20)
[2022-02-09] MEDS: ONDANSETRON 4 MG/2 ML VIAL IV PRN (20:40)
[2022-02-10 06:00] LABS: Basophils % 0.2 % (0.0-0.8); Eosinophils % 0.1 % (0.00-10.9); Hematocrit 38.4 VOL% (35.7-47.0); Immature Granulocytes % 1.2 %; Immature Granulocytes Absolute 0.13 #; Lymphocytes # 0.9 10*3/uL (1.4-4.0); Lymphocytes % 8.2 % (21.3-54.2); Mean Corpuscular HGB Conc 33.9 GM/DL (32-36); Mean Corpuscular Volume 88.5 FL (87-102); Mean Platelet Volume 10.4 FL (9.6-12.0); Monocytes # 0.2 10*3/uL (0.11-0.8); Monocytes % 1.6 % (1.7-12.7); Neutrophils % 88.7 % (38.7-73.9); Platelet Count 284 T/CUMM (130-400); Red Blood Count 4.34 MC/CUMM (3.8-5.5); Red Cell Distribution Width 13.2 % (9.3-17.3); White Blood Count 10.7 T/CUMM (4-12)
[2022-02-10 06:20] LABS: Calcium 9.7 MG/DL (8.5-10.1); Osmolality,Calculated 273.7 MOS/KG (273-304); Potassium 4.2 MMOL/L (3.5-5.1)
[2022-02-10] MEDS: ALBUTEROL/IPRATROPIUM 3 ML NEB RESP TX SCH ×4 (07:22→19:00)
[2022-02-10] MEDS: ONDANSETRON 4 MG/2 ML VIAL IV PRN ×2 (09:26→21:56)
[2022-02-10] MEDS: TOPIRAMATE 25 MG TABLET PO SCH ×2 (09:27→20:33)
[2022-02-10] MEDS: methylPREDNISolone SOD SUC 40 MG/1 ML VIAL IV SCH ×3 (09:27→23:11)
[2022-02-10] MEDS: PANTOPRAZOLE 40 MG TABLET PO SCH (09:27)
[2022-02-10] MEDS: BUDESONIDE/FORMOTEROL 80-4.5 INHALER 6.9 GM INH SCH ×2 (09:28→20:34)
[2022-02-10] MEDS: AZITHROMYCIN INJ 500 MG in SODIUM CHLORIDE 0.9% 250 ML IV SCH (11:07)
[2022-02-10] MEDS: SODIUM CHLORIDE 0.9% 1,000 ML IV SCH ×2 (11:08→20:36)
[2022-02-10] MEDS: MONTELUKAST 10 MG TABLET PO SCH (20:33)
[2022-02-10] MEDS: guaiFENesin 200 MG/10 ML UDCUP PO PRN (23:11)
[2022-02-11] MEDS: ALBUTEROL/IPRATROPIUM 3 ML NEB RESP TX SCH ×4 (00:04→19:18)
[2022-02-11] MEDS: guaiFENesin 200 MG/10 ML UDCUP PO PRN ×2 (03:12→09:46)
[2022-02-11 05:53] LABS: Basophils % 0.1 % (0.0-0.8); Hematocrit 37.8 VOL% (35.7-47.0); Hemoglobin 12.5 GM/DL (12.0-16.0); Immature Granulocytes % 1.6 %; Immature Granulocytes Absolute 0.14 #; Lymphocytes # 0.7 10*3/uL (1.4-4.0); Lymphocytes % 7.3 % (21.3-54.2); Mean Corpuscular HGB Conc 33.1 GM/DL (32-36); Mean Corpuscular Volume 89.2 FL (87-102); Mean Platelet Volume 10.1 FL (9.6-12.0); Monocytes # 0.1 10*3/uL (0.11-0.8); Monocytes % 1.2 % (1.7-12.7); Neutrophils % 89.8 % (38.7-73.9); Platelet Count 284 T/CUMM (130-400); Red Blood Count 4.24 MC/CUMM (3.8-5.5); Red Cell Distribution Width 13.3 % (9.3-17.3)
[2022-02-11] MEDS: SODIUM CHLORIDE 0.9% 1,000 ML IV SCH (06:18)
[2022-02-11] MEDS: methylPREDNISolone SOD SUC 40 MG/1 ML VIAL IV SCH ×3 (08:10→21:10)
[2022-02-11] MEDS: BUDESONIDE/FORMOTEROL 80-4.5 INHALER 6.9 GM INH SCH ×2 (08:11→21:25)
[2022-02-11] MEDS: PANTOPRAZOLE 40 MG TABLET PO SCH (08:11)
[2022-02-11] MEDS: TOPIRAMATE 25 MG TABLET PO SCH ×2 (08:11→21:13)
[2022-02-11] MEDS: AZITHROMYCIN INJ 500 MG in SODIUM CHLORIDE 0.9% 250 ML IV SCH (09:46)
[2022-02-11 11:55] LABS: Calcium 8.8 MG/DL (8.5-10.1); Osmolality,Calculated 275.5 MOS/KG (273-304); Potassium 4.5 MMOL/L (3.5-5.1)
[2022-02-11] MEDS: guaiFENesin/CODEINE 5 ML LIQUID PO PRN ×2 (13:19→21:13)
[2022-02-11] MEDS: ONDANSETRON 4 MG/2 ML VIAL IV PRN (15:16)
[2022-02-11] MEDS: MONTELUKAST 10 MG TABLET PO SCH (21:12)
[2022-02-12] MEDS: ALBUTEROL/IPRATROPIUM 3 ML NEB RESP TX SCH ×4 (00:35→19:00)
[2022-02-12] MEDS: guaiFENesin/CODEINE 5 ML LIQUID PO PRN ×5 (00:59→20:04)
[2022-02-12] MEDS: SODIUM CHLORIDE 0.9% 1,000 ML IV SCH ×3 (01:08→21:47)
[2022-02-12] MEDS: methylPREDNISolone SOD SUC 40 MG/1 ML VIAL IV SCH ×3 (05:26→21:46)
[2022-02-12 05:56] LABS: Basophils % 0.1 % (0.0-0.8); Hematocrit 36.8 VOL% (35.7-47.0); Hemoglobin 12.4 GM/DL (12.0-16.0); Immature Granulocytes % 1.8 %; Immature Granulocytes Absolute 0.17 #; Lymphocytes # 0.6 10*3/uL (1.4-4.0); Lymphocytes % 6.5 % (21.3-54.2); Mean Corpuscular HGB Conc 33.7 GM/DL (32-36); Mean Corpuscular Volume 88.7 FL (87-102); Mean Platelet Volume 10.3 FL (9.6-12.0); Monocytes # 0.3 10*3/uL (0.11-0.8); Neutrophils % 88.6 % (38.7-73.9); Platelet Count 248 T/CUMM (130-400); Red Blood Count 4.15 MC/CUMM (3.8-5.5); Red Cell Distribution Width 13.2 % (9.3-17.3); White Blood Count 9.4 T/CUMM (4-12)
[2022-02-12 06:14] LABS: Calcium 8.7 MG/DL (8.5-10.1); Osmolality,Calculated 279.3 MOS/KG (273-304); Potassium 4.1 MMOL/L (3.5-5.1)
[2022-02-12] MEDS: PANTOPRAZOLE 40 MG TABLET PO SCH (09:21)
[2022-02-12] MEDS: AZITHROMYCIN INJ 500 MG in SODIUM CHLORIDE 0.9% 250 ML IV SCH (09:21)
[2022-02-12] MEDS: TOPIRAMATE 25 MG TABLET PO SCH ×2 (09:21→20:04)
[2022-02-12] MEDS: BUDESONIDE/FORMOTEROL 160-4.5 INHALER 6 GM INH SCH ×2 (11:11→21:50)
[2022-02-12] MEDS: ONDANSETRON 4 MG/2 ML VIAL IV PRN (14:33)
[2022-02-12] MEDS: MONTELUKAST 10 MG TABLET PO SCH (20:04)
[2022-02-13] MEDS: ALBUTEROL/IPRATROPIUM 3 ML NEB RESP TX SCH ×5 (00:29→22:59)
[2022-02-13] MEDS: methylPREDNISolone SOD SUC 40 MG/1 ML VIAL IV SCH ×3 (06:10→22:00)
[2022-02-13] MEDS: guaiFENesin/CODEINE 5 ML LIQUID PO PRN ×2 (06:10→22:00)
[2022-02-13] MEDS: SODIUM CHLORIDE 0.9% 1,000 ML IV SCH ×3 (06:11→16:17)
[2022-02-13 06:33] LABS: Basophils % 0.4 % (0.0-0.8); Hematocrit 37.2 VOL% (35.7-47.0); Hemoglobin 12.5 GM/DL (12.0-16.0); Immature Granulocytes Absolute 0.43 #; Lymphocytes # 0.5 10*3/uL (1.4-4.0); Lymphocytes % 5.4 % (21.3-54.2); Mean Corpuscular HGB Conc 33.6 GM/DL (32-36); Mean Corpuscular Volume 88.8 FL (87-102); Mean Platelet Volume 10.6 FL (9.6-12.0); Monocytes # 0.3 10*3/uL (0.11-0.8); Monocytes % 3.9 % (1.7-12.7); Neutrophils % 85.3 % (38.7-73.9); Platelet Count 264 T/CUMM (130-400); Red Blood Count 4.19 MC/CUMM (3.8-5.5); Red Cell Distribution Width 13.4 % (9.3-17.3); White Blood Count 8.6 T/CUMM (4-12)
[2022-02-13 06:45] LABS: Calcium 8.7 MG/DL (8.5-10.1)
[2022-02-13] MEDS: PANTOPRAZOLE 40 MG TABLET PO SCH (12:22)
[2022-02-13] MEDS: TOPIRAMATE 25 MG TABLET PO SCH ×2 (12:22→22:00)
[2022-02-13] MEDS: BUDESONIDE/FORMOTEROL 160-4.5 INHALER 6 GM INH SCH ×2 (12:22→22:03)
[2022-02-13] MEDS: AZITHROMYCIN INJ 500 MG in SODIUM CHLORIDE 0.9% 250 ML IV SCH (13:57)
[2022-02-13] MEDS: MONTELUKAST 10 MG TABLET PO SCH (22:00)
[2022-02-14] MEDS: SODIUM CHLORIDE 0.9% 1,000 ML IV SCH (02:30)
[2022-02-14] MEDS: ALBUTEROL/IPRATROPIUM 3 ML NEB RESP TX SCH ×4 (02:50→14:43)
[2022-02-14 05:27] LABS: Basophils % 0.5 % (0.0-0.8); Eosinophils # 0.4 10*3/uL (0.0-0.87); Eosinophils % 4.4 % (0.00-10.9); Hematocrit 36.6 VOL% (35.7-47.0); Hemoglobin 12.3 GM/DL (12.0-16.0); Immature Granulocytes % 7.2 %; Immature Granulocytes Absolute 0.59 #; Lymphocytes # 0.5 10*3/uL (1.4-4.0); Lymphocytes % 6.5 % (21.3-54.2); Mean Corpuscular HGB Conc 33.6 GM/DL (32-36); Mean Corpuscular Volume 88.2 FL (87-102); Mean Platelet Volume 10.4 FL (9.6-12.0); Monocytes # 0.5 10*3/uL (0.11-0.8); Monocytes % 6.6 % (1.7-12.7); Neutrophils % 74.8 % (38.7-73.9); Platelet Count 240 T/CUMM (130-400); Red Blood Count 4.15 MC/CUMM (3.8-5.5); Red Cell Distribution Width 13.3 % (9.3-17.3); White Blood Count 8.1 T/CUMM (4-12)
[2022-02-14 05:46] LABS: Calcium 8.4 MG/DL (8.5-10.1); Osmolality,Calculated 278.4 MOS/KG (273-304); Potassium 3.6 MMOL/L (3.5-5.1)
[2022-02-14 05:51] LABS: Lymphocytes 8 % (20-55); Nucleated Red Blood Cells 1 /100 WBC (0-5); Platelet Estimate Adequate; Total Cells Counted 100
[2022-02-14 05:52] LABS: Hypochromia Slight; Microcytosis Slight
[2022-02-14] MEDS: guaiFENesin/CODEINE 5 ML LIQUID PO PRN (05:52)
[2022-02-14] MEDS: methylPREDNISolone SOD SUC 40 MG/1 ML VIAL IV SCH (05:52)
[2022-02-14] MEDS: BUDESONIDE/FORMOTEROL 160-4.5 INHALER 6 GM INH SCH (09:15)
[2022-02-14] MEDS: PANTOPRAZOLE 40 MG TABLET PO SCH (09:15)
[2022-02-14] MEDS: TOPIRAMATE 25 MG TABLET PO SCH (09:15)
[2022-02-14] MEDS: AZITHROMYCIN INJ 500 MG in SODIUM CHLORIDE 0.9% 250 ML IV SCH (09:16)
[2022-02-14 12:00] VITALS: BP 127/89
== END 2022-02-14 15:49 | disposition home or self-care (01) | DRG 141 ==
LOC: N.ED 07:39 → N.EDINP 07:39 → SUATTDRO 11:05 → N.2W 16:10 → SUATTDRO 02-11 11:43
PROVIDERS: ADMIT Emergency Medicine; ATTEND Internal Medicine